=== PATIENT | female | born 1960 ===

== ENCOUNTER 2022-10-04 21:56 | Emergency (ER) | payer OTHER ==
[~2022-10-04] VITALS: Ht 162.5 cm; Wt 77.1 kg
[2022-10-04 23:06] LABS: BASO # 0.1 10*3/uL (0.0-0.1); BASO % 0.6 % (0.0-1.0); EOS # 0.2 10*3/uL (0.0-0.4); HEMATOCRIT 43.7 % (37.0-47.0); LYMPH # 3.1 10*3/uL (1.3-4.4); LYMPH % 33.1 % (27.0-41.0); MEAN CELL VOLUME 86.9 fl (81.0-99.0); MEAN CORPUSCULAR HGB CONC 33.4 g/dl (33.0-37.0); MEAN PLATELET VOLUME 10.2 fl (9.6-12.3); MONO # 0.8 10*3/uL (0.1-1.0); MONO % 8.1 % (3.0-9.0); NEUT # 5.2 10*3/uL (2.3-7.9); NEUT % 55.9 % (47.0-73.0); PLATELET COUNT AUTOMATED 318 10*3/uL (130-400); RED BLOOD COUNT 5.03 10*6/uL (4.10-5.10); RED CELL DISTRI WIDTH 14.2 % (0-14.5); WHITE BLOOD COUNT 9.4 10*3/uL (4.8-10.8)
[2022-10-04 23:29] LABS: ALKALINE PHOSPHATASE 100 U/L (46-116); BUN 13 mg/dl (9-23); CHLORIDE 106 mmol/L (98-107); POTASSIUM 3.7 mmol/L (3.4-5.1); SGPT/ALT 26 U/L (10-49); TOTAL PROTEIN 6.7 gm/dL (6.0-8.0)
[2022-10-05 01:02] LABS: BILIRUBIN Negative (Negative); BLOOD Negative (Negative); CLARITY Clear (Clear); COLOR Yellow (Yellow); GLUCOSE 3+ (Negative); KETONE Trace (Negative); LEUKO ESTERASE Negative (Negative); NITRITE Negative (Negative); PH 5.5 (4.5-8.0); SPECIFIC GRAVITY >= 1.030 (1.001-1.030)
[2022-10-05 01:12] LABS: BACTERIA 1+; MUCOUS 1+
== END 2022-10-05 02:09 ==
LOC: ED 21:56
PROVIDERS: Emergency Medicine
DX: R03.1 Nonspecific low blood-pressure reading (principal); R73.9 Hyperglycemia, unspecified; R33.9 Retention of urine, unspecified; Z88.8 Allergy status to other drugs, medicaments and biological substances; F32.A Depression, unspecified

== ENCOUNTER 2022-11-28 16:11 | Emergency (ER) | payer OTHER ==
[~2022-11-28] VITALS: Ht 154.9 cm; Wt 93.0 kg
== END 2022-11-28 19:20 ==
LOC: ED 16:11
DX: M19.012 Primary osteoarthritis, left shoulder (principal); M54.2 Cervicalgia; F32.A Depression, unspecified; R73.9 Hyperglycemia, unspecified; Z88.8 Allergy status to other drugs, medicaments and biological substances

== ENCOUNTER 2022-12-05 09:38 | Emergency (ER) | payer OTHER ==
[~2022-12-05] VITALS: Ht 152.4 cm; Wt 84.9 kg
[2022-12-05] MEDS ORDERED: ATORVASTATIN CA40 M1 PO (09:53)
[2022-12-05] MEDS ORDERED: ASPIRIN ADULT L81 M2 PO (09:53)
[2022-12-05] MEDS ORDERED: ARIPIPRAZOLE10 MG PO (09:53)
[2022-12-05] MEDS ORDERED: DOCUSATE SOD100 MG PO (09:54)
[2022-12-05] MEDS ORDERED: BETHANECHOL CHL10 MG PO (09:54)
[2022-12-05] MEDS ORDERED: CLOPIDOGREL75 MG PO (09:54)
[2022-12-05] MEDS ORDERED: FLUVOXAMINE100 MG PO (09:56)
[2022-12-05] MEDS ORDERED: RIVASTIGMINE TAR3 M1 PO (09:57)
[2022-12-05] MEDS ORDERED: Lopressor25 MG PO (09:57)
[2022-12-05] MEDS ORDERED: FAMOTIDINE20 M1 PO (09:58)
[2022-12-05] MEDS ORDERED: NOVOLOG FL100 UNIT/2 SQ (09:59)
[2022-12-05] MEDS ORDERED: NYAMYC15 GM T (10:01)
[2022-12-05] MEDS ORDERED: ONDANSETRON HYDR4 MG PO (10:02)
[2022-12-05] MEDS ORDERED: VITAMIN B-12250 MCG PO (10:03)
[2022-12-05] MEDS ORDERED: MELATONIN3 MG PO (10:03)
[2022-12-05] MEDS ORDERED: TYLENOL EXTRA500 MG PO (10:04)
[2022-12-05] MEDS ORDERED: MIRALAX POWDER17 G1 PO (10:06)
[2022-12-05] MEDS ORDERED: GLUCOSE2 GM PO (10:07)
[2022-12-05] MEDS ORDERED: BASAG SOL SQ (10:08)
[2022-12-05] MEDS ORDERED: ERGOCALCIFEROL1 GM PO (10:09)
== END 2022-12-05 10:41 ==
LOC: ED 09:38
DX: M19.012 Primary osteoarthritis, left shoulder (principal); M19.011 Primary osteoarthritis, right shoulder; I69.954 Hemiplegia and hemiparesis following unspecified cerebrovascular disease affecting left non-dominant side; L98.429 Non-pressure chronic ulcer of back with unspecified severity; E78.5 Hyperlipidemia, unspecified; I10 Essential (primary) hypertension; E11.9 Type 2 diabetes mellitus without complications; Z88.8 Allergy status to other drugs, medicaments and biological substances

== ENCOUNTER 2023-01-03 17:24 | Emergency (ER) | payer OTHER ==
[~2023-01-03] VITALS: Ht 149.8 cm; Wt 82.1 kg
[~2023-01-03 17:24] MED LIST: ARIPIPRAZOLE10 MG PO; ASPIRIN ADULT L81 M2 PO; ATORVASTATIN CA40 M1 PO; BASAG SOL SQ; BETHANECHOL CHL10 MG PO; CLOPIDOGREL75 MG PO; DOCUSATE SOD100 MG PO; ERGOCALCIFEROL1 GM PO; FAMOTIDINE20 M1 PO; FLUVOXAMINE100 MG PO; GLUCOSE2 GM PO; Lopressor25 MG PO; MELATONIN3 MG PO; MIRALAX POWDER17 G1 PO; NOVOLOG FL100 UNIT/2 SQ; NYAMYC15 GM T; ONDANSETRON HYDR4 MG PO; RIVASTIGMINE TAR3 M1 PO; TYLENOL EXTRA500 MG PO; VITAMIN B-12250 MCG PO
[2023-01-03 18:46] LABS: BASO # 0.1 10*3/uL (0.0-0.1); BASO % 0.6 % (0.0-1.0); EOS # 0.2 10*3/uL (0.0-0.4); EOS % 1.4 % (1.0-4.0); HEMATOCRIT 43.5 % (37.0-47.0); LYMPH # 2.9 10*3/uL (1.3-4.4); LYMPH % 26.9 % (27.0-41.0); MEAN CELL VOLUME 87.9 fl (81.0-99.0); MEAN CORPUSCULAR HGB 30.3 pg (27.0-31.0); MEAN CORPUSCULAR HGB CONC 34.5 g/dl (33.0-37.0); MEAN PLATELET VOLUME 10.6 fl (9.6-12.3); MONO # 0.8 10*3/uL (0.1-1.0); MONO % 6.9 % (3.0-9.0); NEUT # 6.9 10*3/uL (2.3-7.9); NEUT % 63.8 % (47.0-73.0); PLATELET COUNT AUTOMATED 290 10*3/uL (130-400); RED BLOOD COUNT 4.95 10*6/uL (4.10-5.10); RED CELL DISTRI WIDTH 14.5 % (0-14.5); WHITE BLOOD COUNT 10.9 10*3/uL (4.8-10.8)
[2023-01-03 18:57] LABS: ACT PARTIAL THROMBO TIME 24.6 SECONDS (20.0-32.1)
[2023-01-03 19:09] LABS: ALKALINE PHOSPHATASE 86 U/L (46-116); BUN 14 mg/dl (9-23); CHLORIDE 106 mmol/L (98-107); POTASSIUM 3.9 mmol/L (3.4-5.1); SGPT/ALT 21 U/L (5-49); TOTAL PROTEIN 6.7 gm/dL (6.0-8.0)
== END 2023-01-03 21:47 | disposition home or self-care (01) ==
LOC: ED 17:24
PROVIDERS: Nurse Practitioner
DX: M25.512 Pain in left shoulder (principal); E78.5 Hyperlipidemia, unspecified; I10 Essential (primary) hypertension; E11.9 Type 2 diabetes mellitus without complications; F41.9 Anxiety disorder, unspecified

== ENCOUNTER 2023-01-29 17:59 | Emergency (ER) | payer OTHER ==
[~2023-01-29] VITALS: Wt 84.4 kg
[2023-01-29 18:33] LABS: BASO # 0.1 10*3/uL (0.0-0.1); BASO % 0.6 % (0.0-1.0); EOS # 0.2 10*3/uL (0.0-0.4); EOS % 1.2 % (1.0-4.0); HEMATOCRIT 45.1 % (37.0-47.0); LYMPH # 3.8 10*3/uL (1.3-4.4); LYMPH % 28.6 % (27.0-41.0); MEAN CELL VOLUME 88.3 fl (81.0-99.0); MEAN CORPUSCULAR HGB 29.9 pg (27.0-31.0); MEAN CORPUSCULAR HGB CONC 33.9 g/dl (33.0-37.0); MEAN PLATELET VOLUME 10.4 fl (9.6-12.3); MONO # 0.8 10*3/uL (0.1-1.0); MONO % 5.7 % (3.0-9.0); NEUT # 8.5 10*3/uL (2.3-7.9); NEUT % 63.5 % (47.0-73.0); PLATELET COUNT AUTOMATED 304 10*3/uL (130-400); RED BLOOD COUNT 5.11 10*6/uL (4.10-5.10); RED CELL DISTRI WIDTH 14.3 % (0-14.5); WHITE BLOOD COUNT 13.3 10*3/uL (4.8-10.8)
[2023-01-29 18:44] LABS: ACT PARTIAL THROMBO TIME 24.1 SECONDS (20.0-32.1)
[2023-01-29 18:58] LABS: ALKALINE PHOSPHATASE 83 U/L (46-116); BUN 14 mg/dl (9-23); CHLORIDE 104 mmol/L (98-107); LIPASE 214 U/L (12-53); SGPT/ALT 23 U/L (5-49); TOTAL PROTEIN 7.5 gm/dL (6.0-8.0)
[2023-01-29 20:37] LABS: BILIRUBIN Negative (Negative); BLOOD Negative (Negative); CLARITY Cloudy (Clear); COLOR Yellow (Yellow); GLUCOSE 3+ (Negative); KETONE Negative (Negative); LEUKO ESTERASE 1+ (Negative); NITRITE Negative (Negative); SPECIFIC GRAVITY >= 1.030 (1.001-1.030); UROBILINOGEN 0.2 E.U./dl (0.0-1.0)
[2023-01-29 21:03] LABS: BACTERIA 3+; WBC 21-30 wbc/hpf (0-5)
[2023-01-29] MEDS ORDERED: CIPRO500 MG PO (22:04)
== END 2023-01-30 00:32 | disposition home or self-care (01) ==
LOC: ED 17:59
PROVIDERS: Emergency Medicine
DX: N39.0 Urinary tract infection, site not specified (principal); I10 Essential (primary) hypertension; E11.9 Type 2 diabetes mellitus without complications; F41.9 Anxiety disorder, unspecified; E78.5 Hyperlipidemia, unspecified; R10.2 Pelvic and perineal pain